=== PATIENT | female | born 1965 | race Caucasian/White ===

== ENCOUNTER 2024-10-10 18:21 | Emergency (ER) | payer BC ==
[~2024-10-10] VITALS: Ht 160 cm; Wt 72.0 kg
[2024-10-10 18:24] VITALS: O2SAT 96
[2024-10-10 19:03] VITALS: BP 144/80; PULSE 98; RESP 16; TEMP 36.94740; O2SAT 99
[2024-10-10] MEDS: SODIUM CHLORIDE 0.9% 1,000 ML IV ONE (19:31)
== END 2024-10-10 21:36 | disposition home or self-care (01) ==
LOC: ER 18:21
DX: F10.129 Alcohol abuse with intoxication, unspecified (principal); G31.89 Other specified degenerative diseases of nervous system; Y90.9 Presence of alcohol in blood, level not specified
CPT/HCPCS: 99284; 70450; J7030